=== PATIENT | male | born 1985 | race Caucasian/White ===

== ENCOUNTER 2018-12-26 16:57 | Emergency (ER) | payer BC, OTHER ==
[~2018-12-26] VITALS: Ht 170.2 cm; Wt 99.8 kg
[~2018-12-26 16:57] MED LIST: AMPDEX10; HYDACE5 PO; NAPR550 PO; SERT100
[2018-12-26] MEDS ORDERED: PENVK500 PO (17:53)
== END 2018-12-26 18:14 | disposition home or self-care (01) ==
LOC: ER 16:57
DX: K04.7 Periapical abscess without sinus (principal); Z79.899 Other long term (current) drug therapy; Z79.891 Long term (current) use of opiate analgesic
CPT/HCPCS: 99282; A9270; A9270-GY